=== PATIENT | male | born 1950 | race Caucasian/White ===

== ENCOUNTER 2019-09-27 10:49 | Observation (INO) | payer OTHER ==
[~2019-09-27] VITALS: Ht 170.2 cm; Wt 74.8 kg
[2019-09-27 10:50] VITALS: BP 128/69
[2019-09-27 11:25] LABS: HEMATOCRIT 42.1 % (42.0-52.0); HEMOGLOBIN 14.2 gm/dL (14.0-18.0); MCH 30.2 pg (26.0-34.0); MCHC 33.7 g/dL (28.0-37.0); MCV 89.7 fL (80.0-100.0); PLATELET COUNT 201 thou/uL (150-400); WBC 9.4 thou/uL (4.0-11.0)
[2019-09-27 11:35] LABS: ANION GAP 10 mmol/L (7-16); BUN 14 mg/dL (7-18); CALCIUM 9.2 mg/dL (8.5-10.1); CHLORIDE 101 mmol/L (98-107); CO2 24 mmol/L (21-32); CREATININE 0.7 mg/dL (0.7-1.3); GLUCOSE 148 mg/dL (74-106); POTASSIUM 3.9 mmol/L (3.5-5.1); SODIUM 135 mmol/L (136-145)
[2019-09-27 11:45] LABS: ALBUMIN 3.5 g/dL (3.4-5.0); SGOT 20 U/L (15-37); SGPT 23 U/L (30-65); TOTAL BILIRUBIN 0.9 mg/dL (<0.1-1.0); TOTAL PROTEIN 6.4 g/dL (6.4-8.2); TROPONIN-I <0.06 ng/mL (<0.06)
[2019-09-27 11:59] LABS: AMP/METHAMP Negative (Negative); BARBITURATES Negative (Negative); BENZODIAZEPINES Negative (Negative); COCAINE Negative (Negative); METHADONE Negative (Negative); OPIATES Negative (Negative); PCP Negative (Negative)
[2019-09-27 12:33] LABS: ABSOLUTE NEUTROPHILS 6.6 thou/uL (1.4-8.2)
[2019-09-27 12:34] LABS: ANISOCYTOSIS SLIGHT
[2019-09-27 14:35] VITALS: BP 122/66
--- NOTE | 2019-09-27 15:39 | 2DMMODE ---
[facility] [address] [place] [address] 2 D/M-MODE ECHOCARDIOGRAM Name: JIM APONTE Room #: 364-P ADM IN M.R.#: [id number] Admission: 09/27/19 Attend Phys: Mitchell Mustafa, Discharge: Date of : 46 Report #: [id number] THIS REPORT FOR: //name// APPROVED REPORT Study performed: 09/27/2019 14:39:04 EXAM: Comprehensive 2D, Doppler, and color-flow Echocardiogram Patient Location: Echo lab Room #: 364 Status: routine BSA: 1.86 HR: 61 bpm BP: 106/66 mmHg Rhythm: NSR Other Information Study Quality: Adequate Technically limited study due to lung interference. Indications Chest Pain Hx: Cancer, HDL 2D Dimensions RVDd: 32.76 mm IVSd: 10.10 (7-11mm) LVOT Diam: 22.07 (18-24mm) LVDd: 55.82 mm PWd: 9.91 (7-11mm) LVDs: 34.90 (25-40mm) Aortic Root: 38.93 mm Volumes Left Atrial Volume (Systole) Single Plane 4CH: 42.98 mL Single Plane 2CH: 52.29 mL LA ESV Index: 28.00 mL/m2 Aortic Valve AoV Peak Ricardo.: 1.60 m/s AO Peak Gr.: 10.28 mmHg LVOT Max P.08 mmHg LVOT Max V: 1.13 m/s PHIL Vmax: 2.69 cm2 Mitral Valve [facility] [address] [place] [address] 2 D/M-MODE ECHOCARDIOGRAM Name: JIM APONTE Room #: 364-P [facility] IN M.R.#: [id number] Admission: 09/27/19 Attend Phys: Mitchell Mustafa, Discharge: Date of : 46 Report #: [id number] E/A Ratio: 0.7 MV Decel. Time: 319.73 ms MV E Max Ricardo.: 0.55 m/s MV A Ricardo.: 0.75 m/s MV PHT: 92.72 ms IVRT: 87.66 ms Pulmonary Valve PV Peak Ricardo.: 0.86 m/s PV Peak Gr.: 2.97 mmHg Pulmonary Vein P Vein S: 0.72 m/s P Vein A: 0.37 m/s P Vein D: 0.34 m/s P Vein A Dur.: 170.7 msec P Vein S/D Ratio: 2.12 Tricuspid Valve TR Peak Ricardo.: 2.27 m/s RAP Estimate: 5.00 mmHg TR Peak Gr.: 21.00 mmHg PA Pressure: 26.00 mmHg Left Ventricle The left ventricle is normal size. There is normal LV segmental wall motion. There is normal left ventricular wall thickness. Left ventricular systolic function is normal. LVEF is 60-65%. Mild diastolic dysfunction is present (impaired relaxation pattern). Right Ventricle The right ventricle is normal size. The right ventricular systolic function is normal. Atria The left atrium size is normal. The right atrium size is normal. Aortic Valve The aortic valve is normal in structure. No aortic regurgitation is present. There is no aortic valvular stenosis. Mitral Valve The mitral valve is normal in structure. There is no mitral valve regurgitation noted. No evidence of mitral valve stenosis. Tricuspid Valve The tricuspid valve is normal in structure. Trace tricuspid regurgitation. Estimated PAP is 25-30mmHg. [facility] [address] [place] [address] 2 D/M-MODE ECHOCARDIOGRAM Name: JIM APONTE Room #: 364-P [facility] IN .R.#: [id number] Admission: 09/27/19 Attend Phys: Mitchell Mustafa, Discharge: Date of : 46 Report #: [id number] Pulmonic Valve Pulmonic valve is not well visualized. Trace pulmonic regurgitation. Great Vessels Aortic root is mildly dilated at 3.9cm. Ascending aorta is not well visualized. IVC is normal in size and collapses >50% with inspiration. Pericardium There is no pericardial effusion. <Conclusion> The left ventricle is normal size. LVEF is 60-65%. The aortic valve is normal in structure. The mitral valve is normal in structure. The tricuspid valve is normal in structure. Trace tricuspid regurgitation. Estimated PAP is 25-30mmHg. Pulmonic valve is not well visualized. Trace pulmonic regurgitation. There is no pericardial effusion. <ELECTRONICALLY SIGNED> By: Ezra Soria MD 09/27/19 1538 1538 1538 Ezra Soria MD /INF
--- NOTE | 2019-09-27 16:08 | EKG ---
[address] [address] ELECTROCARDIOGRAM REPORT Name: JIM APONTE Room #: 364-P [facility] M.R.#: [id number] Admission: 09/27/19 Attend Phys: Mitchell Mustafa MD Discharge: Date of : 46 Report #: [id number] THIS REPORT FOR: //name// [facility] ED Test Date: 2019-09-27 Test Time: 10:59:30 Pat Name: JIM APONTE Department: Room: 364 Gender: M Manager Ccu: DENNIS : 1950 Requested By: Tylor Dominguez Order Number: [id number] MD: Jayden Curiel Measurements Intervals [place] Rate: 88 P: 47 MN: 141 QRS: -30 QRSD: 90 T: 79 QT: 295 QTc: 357 Interpretive Statements Sinus rhythm Probable left atrial enlargement Left axis deviation Abnormal R-wave progression, early transition No previous ECG available for comparison Electronically Signed On 09-27-2019 16:08:04 METALLOGRAPHER by Jayden Curiel [email or web address] <ELECTRONICALLY SIGNED> By: Jayden Curiel MD 09/27/19 1608 1059 1059 Jayden Curiel MD /ARCHANA
[2019-09-27 16:18] LABS: CHOLESTEROL 212 mg/dL (<200); HDL CHOLESTEROL 63 mg/dL (>40); LDL CHOLESTEROL 141 mg/dL (<100); TC:HDL 3.4 Ratio (Not establshd); TRIGLYCERIDE 43 mg/dL (<150); VLDL 9 mg/dL (<40)
--- NOTE | 2019-09-27 18:28 | NUR ---
ASSUMED CARE OF PT ON ARRIVAL TO UNIT AT APPROX 1430. PT ALERT AND ORIENTED, IN NO ACUTE DISTRESS. SAYS PAIN LARGELY SUBSIDED, BUT CAN FEEL 'CHEST PRESSURE' WHEN DEEP BREATHING. NITRO PASTE IN PLACE. UP AD DONTE IN ROOM. VITALS STABLE. STRESS TEST IN AM PER CARDIOLOGY - NPO AFTER MN. UNEVENTFUL ON TELEMETRY. PT PROGRESSING TOWARD POC GOALS.
[2019-09-27 19:35] VITALS: BP 121/69
[2019-09-28 04:05] VITALS: BP 115/69
[2019-09-28 07:35] VITALS: BP 122/77
--- NOTE | 2019-09-28 09:43 | NUR ---
ORDERS RECEIVED FOR PT EVAL AND TREAT. Pt SEATED UP IN CHAIR IN ROOM WITH FAMILY MEMBER PRESENT. PER RN, Pt UP AD DONTE W/O DIFFICULTY. Pt STATED HE HAD BEEN IN THE BATHROOM THIS MORNING, WASHED HIS HAIR. Pt REPORTING NO CONCERNS REGARDING MOBILITY AT THIS TIME. Pt IS INDEP WITH MOBILITY AND ADLs AT HOME. ACUTE PT TO SIGN OFF Pt AT OF.
--- NOTE | 2019-09-28 11:18 | EXE ---
[facility] [address] [employer] [address] STRESS ECHOCARDIOGRAM Name: JIM APONTE Room #: 364-P [facility] IN M.R.#: [id number] Admission: 09/27/19 Attend Phys: Mitchell Mustafa, Discharge: Date of : 46 Report #: [id number] THIS REPORT FOR: //name// APPROVED REPORT Study performed: 09/28/2019 10:17:23 Exam: Stress Echocardiogram Indication: Chest pressure Patient Location: Echo lab Stress Nurse: Bita Malone RN Room #: 364 Status: routine Ht: 5 ft 7 in HR: 57 bpm BP: 122/77 mmHg Rhythm: NSR Medical History Medications: No cardiac meds Allergies: No known drug allergies Procedure The patient underwent an Exercise Stress Test using the Erich Protocol. Blood pressure, heart rate, and EKG were monitored. An Echocardiogram was performed by dental laboratory technician in four stages in quad fashion. At peak stress, four selected images were obtained and placed side by side with resting images for comparison. Stress Test Details Stress Test: Exercise stress testing was performed using a Erich protocol. HR Resting HR: 57 bpm Max Heart Rate (APMHR): 149 bpm Max HR Achieved: 136 bpm Target HR (85% APMHR): 126 bpm % of APMHR: 91 Recovery HR: 78 bpm HR response to stress: Normal HR response to stress BP Resting BP: 122/77 mmHg Max BP: 160/74 mmHg Recovery BP: 120/66 mmHg ECG [facility] [address] [place] [address] STRESS ECHOCARDIOGRAM Name: JIM APONTE Room #: 364-P [facility] IN M.R.#: [id number] Admission: 09/27/19 Attend Phys: Mitchell Mustafa, Discharge: Date of : 46 Report #: [id number] Clinical Reason for Termination: Maximal effort Stress Symptoms: Dyspnea, Leg Fatigue Exercise duration: 10 min 3 sec Highest Stage Achieved: Stage 4: 4.2 mph at 16% grade. Exercise capacity: 12.30 METs Stress ECG Conclusion 1. Subjectively negative for ischemia] 2. Echocardiographically negative for skin 3. Satisfactory functional capacity Pre-Stress Echo The resting Echocardiogram showed normal left ventricular contractility with an estimated Ejection Fraction of about 55-60%. The resting echocardiogram demonstrated normal wall motion in all wall segments. Post-Stress Echo The stress Echocardiogram showed normal left ventricular contractility with an estimated Ejection Fraction of about 65-70%. Compared to rest, there were no stress-induced wall motion abnormalities. Conclusion Clinical Response: Non-ischemic Exercise Capacity: satisfactory. Stress ECG Response: Non-ischemic Stress Echo Images: Non-ischemic 1. Low risk study 2. No inducible arrhythmias with exercise Other Information Study Quality: Adequate/lung interference <Conclusion> 1. Low risk study 2. No inducible arrhythmias with exercise <ELECTRONICALLY SIGNED> By: Ezra Soria MD 09/28/19 1118 1118 1118 Ezra Soria MD /INF
[2019-09-28 12:15] VITALS: BP 116/67
[2019-09-28 14:35] VITALS: BP 116/67
[2019-09-28 14:39] VITALS: BP 116/67
[2019-09-28 15:06] VITALS: BP 116/67
--- NOTE | 2019-09-28 15:07 | NUR ---
Assumed care approx. 0700 this AM. Patient recieved stress echo this AM. Discharge orders obtained this afternoon. IV and tele dc'd. Outpatient obs sheet signed. Discharge packet and discharge education given to patient. All belongings noted to be with patient. Pt left by wheelchair with transporter to vehicle at approx. 1505.
== END 2019-09-28 15:13 | disposition home or self-care (01) ==
LOC: ER 10:49 → EROBS 12:48 → 3W 13:59 → ENTRNSPT 09-28 15:12 → 3W 09-28 15:13
PROVIDERS: Emergency Medicine; ADMIT Internal Medicine
DX: R07.89 Other chest pain (principal); Z87.2 Personal history of diseases of the skin and subcutaneous tissue; Z85.46 Personal history of malignant neoplasm of prostate; Z79.82 Long term (current) use of aspirin; Z79.899 Other long term (current) drug therapy

== ENCOUNTER 2021-07-22 11:53 | Emergency (ER) | payer OTHER ==
[~2021-07-22] VITALS: Ht 167.6 cm; Wt 75.3 kg
[2021-07-22 13:16] LABS: ABSOLUTE NEUTROPHILS 7.2 thou/uL (1.4-8.2); BASOPHILS 1.1 % (0.0-2.0); EOSINOPHILS 0.7 % (0.0-3.0); HEMATOCRIT 40.8 % (42.0-52.0); HEMOGLOBIN 13.8 gm/dL (14.0-18.0); LYMPHOCYTES 12.9 % (24.0-44.0); MCHC 33.8 g/dL (28.0-37.0); MCV 91.6 fL (80.0-100.0); MONOCYTES 10.6 % (1.0-8.0); PLATELET COUNT 170 thou/uL (150-400); POLYS 74.7 % (36.0-66.0); RBC 4.45 mil/uL (4.50-6.00); RDW 13.2 % (10.5-14.5); WBC 9.6 thou/uL (4.0-11.0)
[2021-07-22 14:45] LABS: CREATININE 0.7 mg/dL (0.7-1.3)
--- NOTE | 2021-07-22 15:15 | EKG ---
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: MELISA : 1950 Requested By: Baltazar Li Order Number: [id number] MD: Josh Schwab Measurements Intervals [place] Rate: 76 P: 51 [place]: 153 QRS: -25 QRSD: 97 T: 85 QT: 412 QTc: 464 Interpretive Statements Sinus rhythm Probable left atrial enlargement Borderline left axis deviation Borderline T abnormalities, anterior leads Baseline wander in lead(s) V1,V2 Compared to ECG 09/27/2019 10:59:30 T-wave abnormality now present Electronically Signed On 07-22-2021 15:14:47 CDT by Josh Schwab [email or web address] <ELECTRONICALLY SIGNED> By: Josh Schwab MD, [facility] 07/22/21 1514 1157 1157 Josh Schwab MD, FAC /EPI
[2021-07-22 17:31] VITALS: BP 148/81
--- NOTE | 2021-07-23 07:22 | EKG ---
[address] [place] [address] ELECTROCARDIOGRAM REPORT Name: JIM APONTE [facility] [id number] Admission: 07/22/21 Attend Phys: Discharge: 07/22/21 Date of : 46 Report #: [id number] [facility] ED Test Date: 2021-07-22 Test Time: 14:17:25 Pat Name: JIM APONTE Department: Room: Gender: M Intensive Care Medicine Specialist: unknown : 1950 Requested By: Devaughn Esparza Order Number: [id number] MD: Josh Schwab Measurements Intervals [place] Rate: 61 P: 47 [place]: 157 QRS: -31 QRSD: 82 T: 88 QT: 458 QTc: 462 Interpretive Statements Sinus rhythm Left axis deviation Abnormal R-wave progression, early transition Borderline T abnormalities, lateral leads Baseline wander in lead(s) V2 Compared to ECG 07/22/2021 11:57:25 No significant changes Electronically Signed On 07-23-2021 7:22:33 CDT by Josh Schwab [email or web address] <ELECTRONICALLY SIGNED> By: Josh Schwab MD, [facility] 07/23/2122 16 16 Josh Schwab MD, FAC /EPI
== END 2021-07-22 17:31 | disposition home or self-care (01) ==
LOC: ER 11:53
PROVIDERS: Emergency Medicine; Nurse Practitioner
DX: R07.89 Other chest pain (principal); Z20.822 Contact with and (suspected) exposure to COVID-19; E03.9 Hypothyroidism, unspecified; Z85.46 Personal history of malignant neoplasm of prostate